=== PATIENT | female | born 1955 | race Two or more races ===

== ENCOUNTER 2016-07-29 14:23 | Emergency (ER) | payer MEDICAID, OTHER ==
[~2016-07-29] VITALS: Ht 154.9 cm; Wt 81.6 kg
[~2016-07-29 14:23] MED LIST: ALBUTEROL SULF8.5 GM INH; ASPIRIN81 M1 ORAL; BACTRIM-DS1 EA ORAL; DITROPAN10 MG PO; LANTUS100 UNIT/1 SUBQ; METFORMIN HCL1000 MG ORAL; PRILOSEC20 MG ORAL; TYLENOL EXTRA500 MG PO; UNK BP MED; UNK CHOLESTEROL; UNK INSULIN SUBQ
[2016-07-29 14:39] VITALS: BP 136/72
--- NOTE | 2016-07-29 16:11 | Diagnostic Imaging Report ---
Indication: PAIN Technique: 3 views right hand Comparison: none Findings: No acute fractures. No dislocations. The joint spaces are preserved Impression: Negative
[2016-07-29] MEDS ORDERED: IBUPROFEN600 MG ORAL (16:20)
[2016-07-29 16:24] VITALS: BP 136/72
--- NOTE | 2016-07-30 14:25 | Diagnostic Imaging Report ---
Indications: PAIN Technique: Two views of the right forearm Comparison: None Findings: There is a nondisplaced fracture of the radial head, best appreciated on the lateral view. There is also a joint effusion. No shaft fracture demonstrated Impression: Positive for radial head fracture Findings discussed by phone with Dr. Verduzco at the time of interpretation
--- NOTE | 2016-07-31 09:15 | Emergency Room Report ---
History of Present Illness General Chief Complaint: Multiple Trauma/Fall Source: Patient Present Illness HPI Patient presents after a fall Patient reports that her foot essentially tripped and the patient fell forward Has pain to the right hand and the right elbow area Mild bruising to the left hand Denies any neck pain denies any head injury or loss of consciousness into the right arm is 5/10 Denies any fevers or chills denies any loss of consciousness Allergies: Coded Allergies: No Known Allergies (Unverified , 02/08/12) Patient History Past Medical History: see triage record Pertinent Family History: none Reviewed Nursing Documentation: PMH: Agreed, PSxH: Agreed Nursing Documentation-PMH Past Medical History: No History, Except For Hx Cardiac Problems: Yes - HIGH CHOLESTEROL Hx Hypertension: Yes Hx Pacemaker: No Hx Asthma: No Hx COPD: No Hx Diabetes: Yes Hx Cancer: No Hx Gastrointestinal Problems: No Hx Dialysis: No Hx Neurological Problems: No Hx Cerebrovascular Accident: Yes Hx Seizures: No Hx Neurologic Surgery: Yes - cranioplasty Review of Systems All Other Systems: negative except mentioned in HPI Physical Exam Vital Signs Date Time Temp Pulse Resp B/P Pulse Ox O2 Delivery O2 Flow Rate FiO2 07/29/16 14:39 97.7 81 16 136/72 97 Room Air Sp02 EP Interpretation: reviewed, normal General Appearance: well appearing, no apparent distress Head: normocephalic, atraumatic Eyes: bilateral eye EOMI, bilateral eye PERRL ENT: hearing grossly normal, normal pharynx Neck: supple, thyroid normal Respiratory: chest non-tender, lungs clear Cardiovascular #1: regular rate, rhythm, no edema Gastrointestinal: non tender, soft Musculoskeletal: other - Tender on the right hand on the fifth digit metacarpal area, also proximal elbow, Neurologic: alert, oriented x3, responsive Skin: other - Hematoma noted to the right hand, abrasion to the left hand Lymphatic: no adenopathy Procedures Splinting Splinting : Consent: Verbal Hand-Made Type: plaster Splint: poserior short Pre-Proc Neuro Vasc Exam: normal Post-Proc Neuro Vasc Exam: normal Patient Tolerated: Well Complications: None Progress Right arm posterior short arm splint as above Medical Decision Making Diagnostic Impression: Primary Impression: radial head fracture ER Course Patient's x-rays reveal fracture as noted above patient was splinted Please note that initially the patient did not want any medications And was written a prescription for home Other X-Ray Diagnostic Results Other X-Ray Diagnostic Results #1: EP Interpretation: Yes Findings: no fractures, no dislocation, no soft tissue swelling Number of Views: 3 - Right hand Other X-Ray Diagnostic Results #2: EP Interpretation: Yes Findings: no dislocation, no soft tissue swelling, other - Right radial head fracture Number of Views: 2 - forearm right Last Vital Signs Date Time Temp Pulse Resp B/P Pulse Ox O2 Delivery O2 Flow Rate FiO2 07/29/16 16:24 97.7 16 136/72 97 Room Air 07/29/16 14:39 81 Status: improved Disposition: HOME, SELF-CARE Condition: Improved Scripts Ibuprofen* (MOTRIN*) 600 Mg Tablet 600 MG ORAL Q8H Y for For Pain, #30 TAB 0 Refills Prov: JOSH GUZMAN D.O. 07/29/16 Referrals: [facility],REFERRING (PCP) Patient Instructions: Radial Head Fracture Additional Instructions: Patient is provided with the discharge instructions notified to follow up with primary doctor in the next 2-3 days otherwise return to the er with any worsening symptoms. Please note that this report is being documented using [employer] technology. This can lead to erroneous entry secondary to incorrect interpretation by the dictating instrument. JOSH GUZMAN D.O. Jul 31, 2016 09:15
== END 2016-07-29 17:00 | disposition home or self-care (01) ==
LOC: EMR 16:50
DX: S52.124A Nondisplaced fracture of head of right radius, initial encounter for closed fracture (principal); E78.00 Pure hypercholesterolemia, unspecified; I10 Essential (primary) hypertension; E11.9 Type 2 diabetes mellitus without complications; Z86.73 Personal history of transient ischemic attack (TIA), and cerebral infarction without residual deficits; W01.0XXA Fall on same level from slipping, tripping and stumbling without subsequent striking against object, initial encounter; Y92.9 Unspecified place or not applicable; Y99.8 Other external cause status
CPT/HCPCS: 29125; 99283

== ENCOUNTER 2017-01-23 10:11 | Emergency (ER) | payer MEDICAID, OTHER ==
[~2017-01-23] VITALS: Ht 154.9 cm; Wt 88.5 kg
[~2017-01-23 10:11] MED LIST changes: +IBUPROFEN600 MG ORAL
[2017-01-23 10:43] VITALS: BP 192/82
--- NOTE | 2017-01-23 10:59 | Emergency Room Report ---
History of Present Illness General Chief Complaint: Pain Source: Patient Present Illness HPI Patient presents with complaints of pain to the left hip area and the right knee she reports that she was walking on a sidewalk when her leg gave out on her left side Pain is 6/10 in the left hip pain is worse with movement denies any lightheadedness denies any dizziness denies any chest pain or shortness of breath Pain the right knee is 5/10 worse with touch or movement appears to be mildly swollen denies any upper back or neck pain denies any lapse of consciousness Allergies: Coded Allergies: No Known Allergies (Unverified , 02/08/12) Patient History Past Medical History: see triage record Pertinent Family History: none Reviewed Nursing Documentation: PMH: Agreed, PSxH: Agreed Nursing Documentation-PMH Hx Cardiac Problems: Yes - HIGH CHOLESTEROL Hx Hypertension: Yes Hx Pacemaker: No Hx Asthma: No Hx COPD: No Hx Diabetes: Yes Hx Cancer: No Hx Gastrointestinal Problems: No Hx Dialysis: No Hx Neurological Problems: No Hx Cerebrovascular Accident: Yes Hx Seizures: No Hx Neurologic Surgery: Yes - cranioplasty Review of Systems All Other Systems: negative except mentioned in HPI Physical Exam Vital Signs Date Time Temp Pulse Resp B/P (MAP) Pulse Ox O2 Delivery O2 Flow Rate FiO2 01/23/17 10:20 97.7 83 18 232/160 95 Room Air Sp02 EP Interpretation: reviewed, normal General Appearance: well appearing, no apparent distress Head: normocephalic, atraumatic Eyes: bilateral eye PERRL, bilateral eye EOMI ENT: hearing grossly normal, normal pharynx, TMs + canals normal, uvula midline Neck: full range of motion, supple, no meningismus, no bony tend Respiratory: lungs clear, normal breath sounds, no rhonchi, no respiratory distress, no retraction, no accessory muscle use Cardiovascular #1: normal peripheral pulses, regular rate, rhythm, no edema, no gallop, no JVD, no murmur Gastrointestinal: normal bowel sounds, non tender, soft, no mass, no organomegaly, non-distended, no guarding, no hernia, no pulsatile mass, no rebound Genitourinary: no CVA tenderness Musculoskeletal: other - Tender on palpation of the left iliac wing, mild swelling to the right knee and tender on palpation of the patella, neurovascularly intact Neurologic: oriented x3, responsive, 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, sensory intact Psychiatric: mood/affect normal Skin: other - Small effusion right knee as noted above Lymphatic: normal inspection, no adenopathy Medical Decision Making Diagnostic Impression: Primary Impression: Knee contusion Additional Impression: Contusion, hip ER Course Given the patient's presentation and history imaging studies were initiated No signs of any acute fractures Patient has done well throughout her stay Patient had a fall earlier this year I did discuss with the patient and her son to follow up closely with her primary physician These appear to be mainly mechanical in nature However close followup would be recommended Other X-Ray Diagnostic Results Other X-Ray Diagnostic Results : X-Ray ordered: right knee # of Views/Limited Vs Complete: 3 View Indication: Pain EP Interpretation: Yes Interpretation: no dislocation, no fractures, other - Mild soft tissue swelling, minimal effusion Impression: Other - small effusio Electronically Signed by: Forrest Guzman, CT/MRI/US Diagnostic Results CT/MRI/US Diagnostic Results : Impression CT pelvic: no acute disease Last Vital Signs Date Time Temp Pulse Resp B/P (MAP) Pulse Ox O2 Delivery O2 Flow Rate FiO2 01/23/17 10:43 81 16 192/82 98 Room Air 01/23/17 10:20 97.7 Status: improved Disposition: HOME, SELF-CARE Condition: Improved Scripts Ibuprofen* (MOTRIN*) 600 Mg Tablet 600 MG ORAL Q8H Y for For Pain, #20 TAB 0 Refills Prov: FORREST GUZMAN D.O. 01/23/17 Additional Instructions: Patient is provided with the discharge instructions notified to follow up with primary doctor in the next 2-3 days otherwise return to the er with any worsening symptoms. Please note that this report is being documented using [employer] technology. This can lead to erroneous entry secondary to incorrect interpretation by the dictating instrument. FORREST GUZMAN D.O. Jan 23, 2017 10:59
[2017-01-23] MEDS ORDERED: Norco 5mg/325mg tab ORAL ONE (11:00)
[2017-01-23] MEDS ORDERED: Ketorolac 60mg Inj IM ONE (11:00)
[2017-01-23] MEDS ORDERED: [UNRECOGNIZED DRUG - REMARK] SUBQ (11:03)
[2017-01-23] MEDS ORDERED: LANTUS SOL100 UNIT/1 SUBQ (11:03)
[2017-01-23] MEDS ORDERED: [UNRECOGNIZED DRUG - REMARK] SQ (11:03)
[2017-01-23] MEDS ORDERED: BENAZEPRIL HCL10 MG ORAL (11:03)
--- NOTE | 2017-01-23 11:36 | Diagnostic Imaging Report ---
Indication: Trauma with pain Technique: XRAY KNEE THREE VIEWS LEFT Comparison: None. Findings: There is narrowing of the knee joint. Tricompartment spurring is present. Fullness of the suprapatellar pouch is present. No definite fracture. No bone destruction. There is an enthesophyte at the quadriceps tendon attachment. Impression: Osteoarthrosis. Knee effusion. Enthesophyte at the quadriceps tendon attachment on the patella.
--- NOTE | 2017-01-23 12:05 | Diagnostic Imaging Report ---
Indication: Trauma with pain Technique: CT PELVIS WO CONTRAST Dose: Total Dose Length Product - DLP [address] Dose Index - CTDIvol(s) 13.66 mGy. Comparison: None Findings: Degenerative changes noted in the lower lumbar spine. The pelvis is intact. There is no fracture. There is no evidence of bone destruction. The hips are intact. There are no gross joint effusions. The uterus is normal size. Calcified phleboliths are present. The ovaries are not enlarged area in the bladder is unremarkable. Impression: Degenerative change in the lumbar spine. Otherwise negative. No osseous injury. The CT scanner at [facility] is accredited by the [employer] and the scans are performed using protocols designed to limit radiation exposure to as low as reasonably achievable to attain images of sufficient resolution adequate for diagnostic evaluation.
[2017-01-23 12:08] LABS: CALCIUM 9.2 mg/dL (8.6-10.2); CREATININE 1.2 mg/dL (0.5-0.9); GLOMERULAR FILTRATION RATE 45.9 mL/min (>60)
[2017-01-23 12:16] LABS: BASOPHILS % (AUTO) 0.8 % (0.0-2.0); EOSINOPHILS % (AUTO) 2.2 % (0.0-3.0); LYMPHOCYTES % (AUTO) 21.8 % (20.0-45.0); MEAN CORPUSCULAR HEMOGLOBIN 24.4 PG (27.0-31.0); MEAN CORPUSCULAR HGB CONC 30.6 G/DL (32.0-36.0); MEAN CORPUSCULAR VOLUME 80 FL (80-99); MEAN PLATELET VOLUME 12.6 FL (6.5-10.1); MONOCYTES % (AUTO) 5.2 % (1.0-10.0); PLATELET COUNT 217 K/UL (150-450); RED BLOOD COUNT 5.05 M/UL (4.20-5.40); RED CELL DISTRIBUTION WIDTH 12.6 % (11.6-14.8); WHITE BLOOD COUNT 6.9 K/UL (4.8-10.8)
[2017-01-23] MEDS ORDERED: IBUPROFEN600 MG ORAL (12:50)
[2017-01-23 13:30] VITALS: BP 179/82
[2017-01-23 13:33] VITALS: BP 179/82
== END 2017-01-23 13:33 | disposition home or self-care (01) ==
LOC: EMR 10:30
DX: S80.01XA Contusion of right knee, initial encounter (principal); S70.02XA Contusion of left hip, initial encounter; W19.XXXA Unspecified fall, initial encounter; Y93.9 Activity, unspecified; Y92.480 Sidewalk as the place of occurrence of the external cause; I10 Essential (primary) hypertension; E11.9 Type 2 diabetes mellitus without complications; Z86.73 Personal history of transient ischemic attack (TIA), and cerebral infarction without residual deficits; Z91.81 History of falling; M17.12 Unilateral primary osteoarthritis, left knee
CPT/HCPCS: 36415; 72192; 80048; 82962; 85025; 96372; 99284

== ENCOUNTER 2017-11-20 21:25 | Emergency (ER) | payer MEDICAID, OTHER ==
[~2017-11-20] VITALS: Ht 152.4 cm; Wt 88.5 kg
[~2017-11-20 21:25] MED LIST changes: +BENAZEPRIL HCL10 MG ORAL; +LANTUS SOL100 UNIT/1 SUBQ; +[UNRECOGNIZED DRUG - REMARK] SQ; +[UNRECOGNIZED DRUG - REMARK] SUBQ
--- NOTE | 2017-11-20 21:57 | Emergency Room Report ---
History of Present Illness General Chief Complaint: Dizziness Source: Patient, Medical Record Present Illness HPI Is a 62-year-old female with history of diabetes. She is on insulin for it. She presents with chief complaint is weakness, dizziness and headache. Onset for several days. Marty lightheaded. No vertigo. Pain is to the back her head waning to the front. No nausea no vomiting. No abdominal pain. Said that her blood sugar runs in the 500 at night. Better in the morning. Takes insulin for it. No chest pain. No nausea vomiting or diarrhea. Allergies: Coded Allergies: No Known Allergies (Unverified , 02/08/12) Patient History Past Medical History: see triage record, old chart reviewed, DM Past Surgical History: other Pertinent Family History: none Social History: Denies: smoking Last Menstrual Period: none Now: No Immunizations: other Reviewed Nursing Documentation: PMH: Agreed; PSxH: Agreed Nursing Documentation-PMH Hx Cardiac Problems: Yes - HIGH CHOLESTEROL Hx Hypertension: Yes Hx Pacemaker: No Hx Asthma: No Hx COPD: No Hx Diabetes: Yes Hx Cancer: No Hx Gastrointestinal Problems: No Hx Dialysis: No Hx Neurological Problems: No Hx Cerebrovascular Accident: Yes Hx Seizures: No Hx Neurologic Surgery: Yes - cranioplasty Review of Systems Constitutional: Reports: malaise, weakness Eye: Denies: eye pain, blurred vision ENT: Denies: ear pain, nose congestion, throat swelling Respiratory: Denies: cough, shortness of breath Cardiovascular: Denies: chest pain, palpitations Gastrointestinal: Denies: abdominal pain, diarrhea, nausea, vomiting Musculoskeletal: Denies: back pain, joint pain Skin: Denies: rash Neurological: Reports: headache, dizziness; Denies: numbness Endocrine: Denies: increased thirst, increased urine Hematologic/Lymphatic: Denies: easy bruising All Other Systems: negative except mentioned in HPI Physical Exam Vital Signs Date Time Temp Pulse Resp B/P (MAP) Pulse Ox O2 Delivery O2 Flow Rate FiO2 11/20/17 21:37 98.4 43 18 176/59 96 Room Air 98.4 vitals with high blood pressure Sp02 EP Interpretation: reviewed, normal General Appearance: well appearing, no apparent distress, alert Head: normocephalic, atraumatic Eyes: bilateral eye PERRL, bilateral eye EOMI ENT: hearing grossly normal, normal pharynx Neck: full range of motion, supple, no meningismus Respiratory: chest non-tender, lungs clear, normal breath sounds Cardiovascular #1: regular rate, rhythm, no murmur Gastrointestinal: normal bowel sounds, non tender, no mass, no organomegaly, no bruit, non-distended Musculoskeletal: back normal, gait/station normal, normal range of motion Psychiatric: mood/affect normal Skin: warm/dry Medical Decision Making Diagnostic Impression: Primary Impression: Dizziness of unknown cause Additional Impressions: Bradycardia Hyperglycemia due to type 2 diabetes mellitus Qualified Codes: E11.65 - Type 2 diabetes mellitus with hyperglycemia; Z79.4 - intermediate project manager (current) use of insulin BROOKE (acute kidney injury) Proteinuria Qualified Codes: R80.9 - Proteinuria, unspecified ER Course Patient resents with dizziness. No syncope. Also with headache. Here she's has been very bradycardic. Asymptomatic when she is laying down. Heart rate is been in the mid 30s to low 40s. This may be secondary to beta blockade. She 's taking 2 blood pressure medications. One is benazepril. The other one she doesn't know the name. Blood sugar is also very elevated. No evidence of infection. She has evidence of BROOKE. IV fluid given. Insulin given. Glucose improving. Will admit for monitoring and further workup. Discussed the case with Dr. Richardson who will admit. Lab Results Impression labs with elevated glucose EKG Diagnostic Results Rate: bradycardiac Rhythm: NSR ST Segments: no acute changes Rhythm Strip Diag. Results Rhythm Strip Time: 00:40 EP Interpretation: yes Rate: 42 Rhythm: NSR, no PVC's, no ectopy CT/MRI/US Diagnostic Results CT/MRI/US Diagnostic Results : Imaging Test Ordered: CT head Impression read by radiologist. Neg Last Vital Signs Date Time Temp Pulse Resp B/P (MAP) Pulse Ox O2 Delivery O2 Flow Rate FiO2 11/20/17 21:37 98.4 43 18 176/59 96 Room Air 98.4 Status: improved Disposition: ADMITTED INPATIENT Condition: Serious LEIGH CORREA M.D. Nov 20, 2017 21:57
[2017-11-20] MEDS ORDERED: Ketorolac 30mg Inj IV ONE (22:00)
[2017-11-20 22:59] LABS: APPEARANCE,URINE CLEAR; BILIRUBIN, URINE NEGATIVE (NEGATIVE); COLOR,URINE PALE YELLOW; GLUCOSE, URINE (UA) 4+ (NEGATIVE); KETONES,URINE NEGATIVE (NEGATIVE); LEUKOCYTE ESTERASE ,URINE NEGATIVE (NEGATIVE); NITRITE,URINE NEGATIVE (NEGATIVE); PH,URINE 5 (4.5-8.0); PROTEIN,URINE 3+ (NEGATIVE); UROBILINOGEN,URINE NORMAL MG/DL (0.0-1.0)
[2017-11-20 23:01] LABS: BASOPHILS % (AUTO) 0.9 % (0.0-2.0); EOSINOPHILS % (AUTO) 1.1 % (0.0-3.0); HEMATOCRIT 33.6 % (37.0-47.0); HEMOGLOBIN 10.8 G/DL (12.0-16.0); LYMPHOCYTES % (AUTO) 23.6 % (20.0-45.0); MEAN CORPUSCULAR VOLUME 79 FL (80-99); MONOCYTES % (AUTO) 6.3 % (1.0-10.0); NEUTROPHILS % (AUTO) 68.1 % (45.0-75.0); PLATELET COUNT 160 K/UL (150-450); RED BLOOD COUNT 4.25 M/UL (4.20-5.40); WHITE BLOOD COUNT 6.8 K/UL (4.8-10.8)
[2017-11-20 23:21] LABS: ANION GAP 5 mmol/L (5-15); BLOOD UREA NITROGEN 56 mg/dL (7-18); CALCIUM 8.7 MG/DL (8.5-10.1); CARBON DIOXIDE 28 MMOL/L (21-32); CHLORIDE 101 MMOL/L (98-107); CREATININE 2.3 MG/DL (0.55-1.30); POTASSIUM 5.3 MMOL/L (3.5-5.1); SODIUM 134 MMOL/L (136-145)
[2017-11-20] MEDS ORDERED: Insulin Human Regular 100units/ml 3ml IV ONE (23:30)
[2017-11-20 23:56] VITALS: BP 158/37
[2017-11-21 02:08] VITALS: BP 165/50
--- NOTE | 2017-11-21 10:31 | Diagnostic Imaging Report ---
Indication: Dizziness Technique: Contiguous 5 mm thick transaxial imaging of the head obtained in a Siemens Sensation [address] scanner. Soft tissue and bone windows generated. Automatic Exposure Control was utilized. Total Dose length Product (DLP): 1319.[address] Dose Index Volume (CTDIvol): 70.38 mGy Comparison: 08/18/2012 Findings: Right frontal encephalomalacia demonstrated. There is a craniectomy over the left calvarium again noted. There is mild prominence of the ventricles, basal cisterns, and cerebral sulci consistent with atrophy. Mild, nonspecific, white matter hypoattenuation is noted throughout the brain consistent with chronic small vessel disease. There is no midline shift, edema, acute hemorrhage, mass effect, or abnormal extra-axial fluid collections. Bones and extra osseous soft tissues are unremarkable. Impression: No acute intracranial bleed, mass effect or edema. No significant change. Previous left-sided craniectomy Mild right inferior frontal encephalomalacia unchanged Mild atrophy of the brain. Nonspecific white matter hypoattenuation probably due to chronic small vessel disease. The CT scanner at [facility] is accredited by the [employer] and the scans are performed using dose optimization techniques as appropriate to a performed exam including Automatic Exposure control.
== END 2017-11-21 02:06 | disposition left against medical advice (07) ==
LOC: EMR 23:29 → 2W 11-21 00:34 → UNDOADMIN 11-21 00:34 → EDBEDREQ 11-21 01:17 → EMR 11-21 02:06 → UNDODISIN 11-21 04:01
DX: E11.65 Type 2 diabetes mellitus with hyperglycemia (principal); N17.9 Acute kidney failure, unspecified; R42 Dizziness and giddiness; R80.9 Proteinuria, unspecified; R00.1 Bradycardia, unspecified; Z86.73 Personal history of transient ischemic attack (TIA), and cerebral infarction without residual deficits; I10 Essential (primary) hypertension; E78.00 Pure hypercholesterolemia, unspecified
CPT/HCPCS: 36415; 70450; 80048; 81001; 82962; 84484; 85025; 93005; 99284; J1815; J1885

== ENCOUNTER 2018-06-17 22:26 | Emergency (ER) | payer MEDICAID, OTHER ==
[~2018-06-17] VITALS: Ht 154.9 cm; Wt 79.4 kg
[2018-06-17 22:55] VITALS: BP 218/74
--- NOTE | 2018-06-17 22:55 | NUR ---
ED Nurse Note: Patient walk in with son c/o lower abdominal pain radiating to lower back. Patient was hospitalized last week for kidney infection at [facility] in [facility]. Symptoms went away and then returned yesterday. BP is 217/92. pt is complaining of 7/10 pain. denies vomiting. md made aware of the b. will continue to monitor.
--- NOTE | 2018-06-18 00:01 | NUR ---
ED Nurse Note: Received verbal orders from ERMD for CBC CMP and Urinalysis. Notified primary RN
[2018-06-18 00:09] LABS: APPEARANCE,URINE CLEAR; BILIRUBIN, URINE NEGATIVE (NEGATIVE); COLOR,URINE PALE YELLOW; GLUCOSE, URINE (UA) 4+ (NEGATIVE); KETONES,URINE NEGATIVE (NEGATIVE); LEUKOCYTE ESTERASE ,URINE NEGATIVE (NEGATIVE); NITRITE,URINE NEGATIVE (NEGATIVE); PH,URINE 6 (4.5-8.0); PROTEIN,URINE 3+ (NEGATIVE); UROBILINOGEN,URINE NORMAL MG/DL (0.0-1.0)
[2018-06-18 00:10] LABS: BASOPHILS % (AUTO) 0.7 % (0.0-2.0); EOSINOPHILS % (AUTO) 1.5 % (0.0-3.0); HEMATOCRIT 34.7 % (37.0-47.0); HEMOGLOBIN 11.2 G/DL (12.0-16.0); LYMPHOCYTES % (AUTO) 23.3 % (20.0-45.0); MEAN CORPUSCULAR VOLUME 76 FL (80-99); MONOCYTES % (AUTO) 6.6 % (1.0-10.0); NEUTROPHILS % (AUTO) 67.9 % (45.0-75.0); PLATELET COUNT 257 K/UL (150-450); RED BLOOD COUNT 4.55 M/UL (4.20-5.40); RED CELL DISTRIBUTION WIDTH 13.2 % (11.6-14.8); WHITE BLOOD COUNT 6.6 K/UL (4.8-10.8)
--- NOTE | 2018-06-18 00:12 | Emergency Room Report ---
History of Present Illness General Chief Complaint: Abdominal Pain Source: Patient Present Illness HPI Is a 63-year-old female with a history of hypertension. She presents with chief complaint of dysuria frequency. She was admitted about a couple weeks ago for pyelonephritis. She finished a course of antibiotics. Now she has dysuria frequency. Onset today. No nausea no vomiting. No fever chills but no back pain. She did not take her blood pressure presents in tonight. Allergies: Coded Allergies: No Known Allergies (Unverified , 02/08/12) Patient History Past Medical History: see triage record, old chart reviewed, HTN Past Surgical History: other Pertinent Family History: none Social History: Denies: smoking Last Menstrual Period: KAVYA Now: No Immunizations: other Reviewed Nursing Documentation: PMH: Agreed; PSxH: Agreed Nursing Documentation-PMH Past Medical History: No History, Except For Hx Cardiac Problems: Yes Hx Hypertension: Yes Hx Pacemaker: Yes Hx Asthma: No Hx COPD: No Hx Diabetes: Yes Hx Cancer: No Hx Gastrointestinal Problems: No Hx Dialysis: No Hx Neurological Problems: No Hx Cerebrovascular Accident: Yes - 1975 - no deficits Hx Seizures: No Hx Neurologic Surgery: Yes - cranioplasty Review of Systems Eye: Denies: eye pain, blurred vision ENT: Denies: ear pain, nose congestion, throat swelling Respiratory: Denies: cough, shortness of breath Cardiovascular: Denies: chest pain, palpitations Gastrointestinal: Denies: abdominal pain, diarrhea, nausea, vomiting Genitourinary: Reports: dysuria, frequency Musculoskeletal: Denies: back pain, joint pain Skin: Denies: rash Neurological: Denies: headache, numbness Endocrine: Denies: increased thirst, increased urine Hematologic/Lymphatic: Denies: easy bruising All Other Systems: negative except mentioned in HPI Physical Exam Vital Signs Date Time Temp Pulse Resp B/P (MAP) Pulse Ox O2 Delivery O2 Flow Rate FiO2 06/17/18 22:49 97.5 81 16 217/92 98 Room Air vitals with high blood pressure Sp02 EP Interpretation: reviewed, normal General Appearance: well appearing, no apparent distress, alert, obese Head: normocephalic, atraumatic Eyes: bilateral eye PERRL, bilateral eye EOMI ENT: hearing grossly normal, normal pharynx Neck: full range of motion, supple, no meningismus Respiratory: chest non-tender, lungs clear, normal breath sounds Cardiovascular #1: regular rate, rhythm, no murmur Gastrointestinal: normal bowel sounds, non tender, no mass, no organomegaly, no bruit, non-distended Musculoskeletal: back normal, gait/station normal, normal range of motion Psychiatric: mood/affect normal Skin: warm/dry Medical Decision Making Diagnostic Impression: Primary Impression: Hypertension Qualified Codes: I10 - Essential (primary) hypertension Additional Impression: Hyperglycemia due to type 1 diabetes mellitus ER Course Patient with poorly controlled diabetes and high blood pressure. She probably not watching what she eat. She did have a large no prior to arrival. According to his son, she had beans and tortillas. No evidence of endorgan damage. No evidence of urinary tract infection. We'll discharge home. We'll add another blood pressure medication. Currently she is taking benazepril and Hydrochlorothiazide. Last Vital Signs Date Time Temp Pulse Resp B/P (MAP) Pulse Ox O2 Delivery O2 Flow Rate FiO2 06/17/18 22:55 97.5 81 16 218/74 98 Room Air Status: improved Disposition: HOME, SELF-CARE Condition: Stable Scripts Amlodipine Besylate (Norvasc) 10 Mg Tablet 10 MG ORAL DAILY, #30 TAB Prov: Carlos Lunsford MD 06/18/18 Additional Instructions: Watch your diet. Follow-up with your doctor in 7 days. Return if symptom worsen. Carlos Lunsford MD Jun 18, 2018 00:12
[2018-06-18 00:15] LABS: ANION GAP 9 mmol/L (5-15); BLOOD UREA NITROGEN 44 mg/dL (7-18); CARBON DIOXIDE 26 MMOL/L (21-32); CHLORIDE 100 MMOL/L (98-107); CREATININE 1.5 MG/DL (0.55-1.30); POTASSIUM 4.6 MMOL/L (3.5-5.1); SODIUM 135 MMOL/L (136-145)
[2018-06-18] MEDS ORDERED: Benazepril 10mg tab ONE (00:17)
[2018-06-18 00:19] LABS: ALANINE AMINOTRANSFERASE 23 U/L (12-78); ALBUMIN 2.8 G/DL (3.4-5.0); ALBUMIN/GLOBULIN RATIO 0.6 (1.0-2.7); ALKALINE PHOSPHATASE 165 U/L (46-116); ASPARTATE AMINO TRANSFERASE 18 U/L (15-37); BILIRUBIN,TOTAL 0.2 MG/DL (0.2-1.0)
[2018-06-18] MEDS ORDERED: Benazepril 10mg tab ORAL ONE ×2 (00:30→01:00)
[2018-06-18] MEDS ORDERED: NORVASC10 MG ORAL (01:03)
[2018-06-18] MEDS ORDERED: Insulin Human Regular 100units/ml 3ml IV ONE (01:15)
[2018-06-18 01:16] VITALS: BP 150/65
[2018-06-18 01:17] VITALS: BP 150/65
--- NOTE | 2018-06-18 01:17 | NUR ---
ED Nurse Note: Patient cleared for discharge per ERMD. NAD. VSS. Patient given prescriptions and discharge instructions; verbalized understanding. iv and ID band removed. Patient ambulated steady with all personal belongings accomapnied by son.
== END 2018-06-18 01:17 | disposition home or self-care (01) ==
LOC: EMR 23:10
DX: I10 Essential (primary) hypertension (principal); E10.65 Type 1 diabetes mellitus with hyperglycemia; Z86.73 Personal history of transient ischemic attack (TIA), and cerebral infarction without residual deficits
CPT/HCPCS: 36415; 80053; 81001; 82962; 85025; 96361; 96374; 96375; 99284; J0360; J1815

== ENCOUNTER 2018-09-15 20:01 | Emergency (ER) | payer MEDICAID, OTHER ==
[~2018-09-15] VITALS: Ht 157.5 cm; Wt 81.6 kg
[~2018-09-15 20:01] MED LIST changes: +NORVASC10 MG ORAL
[2018-09-15] MEDS ORDERED: UNOBMED (20:12)
[2018-09-15 20:16] VITALS: BP 132/60
--- NOTE | 2018-09-15 20:18 | NUR ---
ED Nurse Note: Patient walked in to ER from home c/o left side neck pain. Per patient she is coughing 1 week and today pain started in her left side of her neck. AAO x4, VSS at this time, skin is dry, intackt.
[2018-09-15] MEDS ORDERED: GUAIFENESIN DM118 M1 ORAL (21:09)
--- NOTE | 2018-09-15 21:23 | Diagnostic Imaging Report ---
History: SOB Exam: XR CXR 1 VIEW Comparison: 08/18/2012 FINDINGS: The lungs appear clear. Pulmonary vascularity appears within limits. A dual-chamber pacemaker is now present. The cardiac silhouette appears enlarged. Visualized osseous structures appear within limits. IMPRESSION: No evidence of acute disease. A dual-chamber pacemaker is now present. The cardiac silhouette appears enlarged.
[2018-09-15 21:27] VITALS: BP 132/60
--- NOTE | 2018-09-15 21:28 | NUR ---
ED Nurse Note: Pt cleared by health care Provider for discharge. DC instructions/prescription was given and explained to pt and verbalized understanding of teachings. All medical deviecs such as ID band removed. Pt is AAO x4, ambulatory and left with all personal belongings.
--- NOTE | 2018-09-19 15:41 | Emergency Room Report ---
History of Present Illness General Chief Complaint: Sore Throat Source: Patient Present Illness HPI Patient is a 63-year-old female presented after increased sore throat. Patient had gradual onset of symptoms over the past few days.Patient not been vomiting or having any diarrhea. She reported having increased nonproductive cough. She had increased nasal congestion. Allergies: Coded Allergies: No Known Allergies (Unverified , 02/08/12) Patient History Past Medical History: see triage record Last Menstrual Period: KAVYA Now: No Reviewed Nursing Documentation: PMH: Agreed; PSxH: Agreed Nursing Documentation-PMH Hx Cardiac Problems: Yes Hx Hypertension: Yes Hx Pacemaker: Yes Hx Asthma: No Hx COPD: No Hx Diabetes: Yes Hx Cancer: No Hx Gastrointestinal Problems: No Hx Dialysis: No Hx Neurological Problems: No Hx Cerebrovascular Accident: Yes - 1975 - no deficits Hx Seizures: No Hx Neurologic Surgery: Yes - cranioplasty Review of Systems All Other Systems: negative except mentioned in HPI Physical Exam Vital Signs Date Time Temp Pulse Resp B/P (MAP) Pulse Ox O2 Delivery O2 Flow Rate FiO2 09/15/18 20:09 98.2 80 16 95 Room Air 09/15/18 20:16 132/60 General Appearance: well appearing, no apparent distress, alert, GCS 15 Head: normocephalic, atraumatic ENT: hearing grossly normal, normal voice Neck: full range of motion, supple Respiratory: no respiratory distress, speaking full sentences Cardiovascular #1: normal inspection, regular rate, rhythm Gastrointestinal: normal inspection, non tender, soft Musculoskeletal: no calf tenderness Neurologic: normal inspection, alert, oriented x3, responsive, fiberglass autobody repairer III-XII nml as tested, normal gait Psychiatric: mood/affect normal Skin: no rash Medical Decision Making Diagnostic Impression: Primary Impression: Upper respiratory infection ER Course Patient presented for cough. Differential diagnosis include was not limited to bronchitis, pneumonia, congestive heart failure, upper respiratory infection among others. X-ray imaging of the chest was ordered to patient's prior cardiac history. Patient was noted to have pacemaker with slight cardiomegaly on chest x-ray. There is no evident infiltrate noted. Patient appears to have a upper respiratory infection. She was given prescriptions for medications for symptomatic treatment. Patient does not show any evidence of pedal edema or neck vein distention. Patient was advised to continue taking her medications and to avoid salt in her diet.The patient is advised to follow up with primary care doctor in 1-2 days. Patient is advised to return if any worsening condition or if any changes in status that are concerning. Last Vital Signs Date Time Temp Pulse Resp B/P (MAP) Pulse Ox O2 Delivery O2 Flow Rate FiO2 09/15/18 21:27 98.2 16 132/60 95 Room Air 09/15/18 20:09 80 Status: improved Disposition: HOME, SELF-CARE Condition: Improved Scripts Guaifenesin/Dextromethorphan (Guaifenesin Dm Syrup) 5 Ml Syrup 1 TSP ORAL Q8H, #118 ML 0 Refills Prov: Mic Bashir MD 09/15/18 Patient Instructions: Sore Throat Mic Bashir MD September 19, 2018 15:41
== END 2018-09-15 21:35 | disposition home or self-care (01) ==
LOC: EMR 20:44
DX: J06.9 Acute upper respiratory infection, unspecified (principal); I10 Essential (primary) hypertension; Z95.0 Presence of cardiac pacemaker; E11.9 Type 2 diabetes mellitus without complications; Z86.73 Personal history of transient ischemic attack (TIA), and cerebral infarction without residual deficits
CPT/HCPCS: 71045; 99283

== ENCOUNTER 2019-02-07 17:04 | Emergency (ER) | payer MEDICAID ==
[~2019-02-07] VITALS: Ht 154.9 cm; Wt 79.4 kg
[~2019-02-07 17:04] MED LIST changes: +GUAIFENESIN DM118 M1 ORAL; +UNOBMED
--- NOTE | 2019-02-07 17:24 | NUR ---
ED Nurse Note: PT WALKED IN TO ER TODAY FROM HOME. AOX4. PT C/O RIGHT BIG TOE PAIN X 2 HOURS AGO AFTER ACCIDENTALLY KICKING A STROLLER. PT STATES IT WAS BLEEDING AFTER INCIDENT BUT AT BEDSIDE, NO ACTIVE BLEEDING NOTED. FULL ROM OF DIGIT. CIRCULATION AND SENSATION INTACT.
--- NOTE | 2019-02-07 17:50 | Diagnostic Imaging Report ---
Indication: Pain, trauma Technique: 3 views of the right great toe Comparison: none Findings: No acute fractures. No dislocations. There is questionably a small focus of soft tissue gas dorsally. Impression: No acute bony trauma Questionable small dorsal atrophy gas collection. Correlate with any clinical history of penetrating trauma
[2019-02-07] MEDS ORDERED: Cephalexin 500mg cap ORAL ONE (18:00)
[2019-02-07] MEDS ORDERED: Tetanus/Diptheria/Pertussis IM ONE (18:00)
--- NOTE | 2019-02-07 18:03 | Emergency Room Report ---
History of Present Illness General Chief Complaint: Lower Extremity Injury Source: Patient Present Illness HPI 63-year-old female with history of diabetes currently controlled with insulin and metformin here complaining of pain and swelling on right big toe that started today after hitting it against a stroller. Patient is rating the pain 10 out of 10. The nail still attached however bleeding. Patient is not up-to- date with his tetanus shot. Denies tingling and numbness. Denies fever and chills, chest pain, shortness of breath, palpitation. Has full range of motion of the lower extremity. Denies calf tenderness and swelling. Has not taken medication for symptom relief. Allergies: Coded Allergies: No Known Allergies (Unverified , 02/08/12) Patient History Past Medical History: see triage record Past Surgical History: unable to obtain Pertinent Family History: none Now: No Immunizations: other - Tdap Reviewed Nursing Documentation: PMH: Agreed; PSxH: Agreed Nursing Documentation-PMH Past Medical History: No History, Except For Hx Cardiac Problems: Yes Hx Hypertension: Yes Hx Pacemaker: Yes Hx Asthma: No Hx COPD: No Hx Diabetes: Yes Hx Cancer: No Hx Gastrointestinal Problems: No Hx Dialysis: No Hx Neurological Problems: No Hx Cerebrovascular Accident: Yes - 1975 - no deficits Hx Seizures: No Hx Neurologic Surgery: Yes - cranioplasty Review of Systems All Other Systems: negative except mentioned in HPI Physical Exam Vital Signs Date Time Temp Pulse Resp B/P (MAP) Pulse Ox O2 Delivery O2 Flow Rate FiO2 02/07/19 17:09 98.4 72 18 125/58 (80) 99 Room Air Sp02 EP Interpretation: reviewed, normal General Appearance: no apparent distress, alert, GCS 15, non-toxic Head: normocephalic, atraumatic Eyes: bilateral eye normal inspection, bilateral eye PERRL ENT: hearing grossly normal, normal pharynx, no angioedema, normal voice Neck: full range of motion, supple/symm/no masses Respiratory: chest non-tender, lungs clear, normal breath sounds, no rhonchi, no wheezing, speaking full sentences Cardiovascular #1: regular rate, rhythm, no edema, no murmur, normal capillary refill Cardiovascular #2: 2+ dorsalis pedis (R), 2+ dorsalis pedis (L) Gastrointestinal: normal bowel sounds, non tender, soft, non-distended, no guarding, no rebound Rectal: deferred Genitourinary: normal inspection, no CVA tenderness Musculoskeletal: back normal, gait/station normal, normal range of motion, non- tender, no calf tenderness, pelvis stable, inflammation, swelling - right big toe, other Neurologic: alert, oriented x3, responsive, motor strength/tone normal, sensory intact, speech normal Psychiatric: judgement/insight normal, memory normal, mood/affect normal, no suicidal/homicidal ideation Skin: other - cellulitis right big toe Lymphatic: normal inspection, no adenopathy Medical Decision Making PA Attestation All diagnoses and treatment plans were reviewed and discussed with my supervising physician Dr. Duran Diagnostic Impression: Primary Impression: Toe contusion Additional Impression: Toe infection ER Course 63-year-old female with history of diabetes currently controlled with insulin and metformin here complaining of pain and swelling on right big toe that started today after hitting it against a stroller. Patient is rating the pain 10 out of 10. The nail still attached however bleeding. Patient is not up-to- date with his tetanus shot. Denies tingling and numbness. Denies fever and chills, chest pain, shortness of breath, palpitation. Has full range of motion of the lower extremity. Denies calf tenderness and swelling. Has not taken medication for symptom relief. Ddx considered but are not limited to: Toe sprain, toe fracture, toe contusion Vital signs: are WNL, pt. is afebrile H&PE are most consistent with: Cellulitis of toe secondary to toe contusion ORDERS: Toe x-ray, ibuprofen, Keflex, Tdap ED INTERVENTIONS: Keflex, wound care and dress DISCHARGE: At this time pt. is stable for d/c to home. Will provide printed patient care instructions, and any necessary prescriptions. Care plan and follow up instructions have been discussed with the patient prior to discharge. Advised the patient follow-up with acute care clinical nurse specialist return to the emergency room if change of color of the toe turning black Other X-Ray Diagnostic Results Other X-Ray Diagnostic Results : X-Ray ordered: toe Xray # of Views/Limited Vs Complete: 3 View Indication: Pain EP Interpretation: Yes PA Xray: Interpretation reviewed, by supervising MD, and agrees with findings. Interpretation: no dislocation, no soft tissue swelling, no fractures Impression: No acute disease Electronically Signed by: Win Dye PA-C Last Vital Signs Date Time Temp Pulse Resp B/P (MAP) Pulse Ox O2 Delivery O2 Flow Rate FiO2 02/07/19 17:09 98.4 72 18 125/58 (80) 99 Room Air Disposition: HOME, SELF-CARE Condition: Stable Scripts Ibuprofen* (MOTRIN*) 600 Mg Tablet 600 MG ORAL FOUR TIMES A DAY, #30 TAB 0 Refills Prov: Win Herron 02/07/19 Cephalexin* (KEFLEX*) 500 Mg Capsule 500 MG ORAL EVERY 6 HOURS for 7 Days, #28 CAP Prov: Win Herron 02/07/19 Referrals: [facility] (PCP) Patient Instructions: Contusion, [id number] Additional Instructions: Take medication as to follow provider if any change of color numbness in the toes or gangrene he is color change such as turning black return to the emergency room right away. Also follow-up with her primary care provider and Ortho for further work-up. Win Herron Feb 07, 2019 18:03
[2019-02-07] MEDS ORDERED: CEPHALEXIN500 MG ORAL (18:05)
[2019-02-07] MEDS ORDERED: IBUPROFEN600 MG ORAL (18:05)
[2019-02-07 18:18] VITALS: BP 122/62
--- NOTE | 2019-02-07 18:18 | NUR ---
ED Nurse Note: PT LAYING PEACEFULLY IN BED IN NAD. AOX4. PRESCRIPTION AND DISCHARGE PAPERWORK EXPLAINED TO PT. PT VERBALIZES UNDERSTANDING AND ALL QUESTIONS ANSWERED. PRESCRIPTION AND DISCHARGE PAPERWORK GIVEN TO PT AND ID WRISTBAND REMOVED. PT WALKED OUT OF ER WITH STEADY GAIT AND ALL BELONGINGS.
== END 2019-02-07 18:19 | disposition home or self-care (01) ==
LOC: EMR 17:40
DX: S90.111A Contusion of right great toe without damage to nail, initial encounter (principal); L03.031 Cellulitis of right toe; I10 Essential (primary) hypertension; E11.9 Type 2 diabetes mellitus without complications; Z95.0 Presence of cardiac pacemaker; Z86.73 Personal history of transient ischemic attack (TIA), and cerebral infarction without residual deficits; Z79.4 Long term (current) use of insulin; Z79.84 Long term (current) use of oral hypoglycemic drugs; Z23 Encounter for immunization; W22.8XXA Striking against or struck by other objects, initial encounter; Y92.9 Unspecified place or not applicable
CPT/HCPCS: 73660; 90471; 90715; Z7502; 99283

== ENCOUNTER 2019-10-09 15:25 | Emergency (ER) | payer MEDICAID, OTHER ==
[~2019-10-09] VITALS: Ht 152.4 cm; Wt 83.9 kg
[~2019-10-09 15:25] MED LIST changes: +CEPHALEXIN500 MG ORAL
[2019-10-09 15:50] VITALS: BP 126/67
[2019-10-09] MEDS ORDERED: Meclizine 25mg tab ONE (15:55)
--- NOTE | 2019-10-09 16:02 | Emergency Room Report ---
History of Present Illness General Chief Complaint: Dizziness Source: Patient Present Illness HPI 64-year-old female history of hypertension history of diabetes presents with dizziness started 4 days ago and 5 days earlier had left ear pain, patient endorses dizziness with position, sudden movements, the room spins, alleviated by standing still, severity is severe, intermittent lasting a few minutes patient presents for evaluation no weakness no facial droop no chest pain or shortness of breath Allergies: Coded Allergies: No Known Allergies (Unverified , 02/08/12) COVID-19 Screening Contact w/high risk pt: No Recent Travel to affected area: No Experienced COVID-19 symptoms?: No COVID-19 Testing performed DESIGN AND SALES CONSULTANT: No Patient History Past Medical History: see triage record Last Menstrual Period: na Now: No Reviewed Nursing Documentation: PMH: Agreed; PSxH: Agreed Nursing Documentation-PMH Past Medical History: No History, Except For Hx Cardiac Problems: Yes Hx Hypertension: Yes Hx Pacemaker: Yes Hx Asthma: No Hx COPD: No Hx Diabetes: Yes Hx Cancer: No Hx Gastrointestinal Problems: No Hx Dialysis: No Hx Neurological Problems: No Hx Cerebrovascular Accident: Yes - 1975 - no deficits Hx Seizures: No Hx Neurologic Surgery: Yes - cranioplasty Review of Systems All Other Systems: negative except mentioned in HPI Physical Exam Vital Signs Date Time Temp Pulse Resp B/P (MAP) Pulse Ox O2 Delivery O2 Flow Rate FiO2 10/09/19 15:41 98.4 67 17 126/67 (86) 97 Room Air General Appearance: well appearing, no apparent distress Head: normocephalic, atraumatic ENT: hearing grossly normal, normal voice Neck: full range of motion, supple Respiratory: no respiratory distress, speaking full sentences Neurologic: alert, motor strength/tone normal, intelligence officer basic III-XII nml as tested, oriented x3, cerebellar normal, responsive, speech normal, normal gait, no pronator, no focal defects, other - Cranial nerves II through XII intact, no pronator drift, no Romberg, gait intact cerebellar signs normal [id number] Psychiatric: mood/affect normal Skin: no rash Medical Decision Making Diagnostic Impression: Primary Impression: Dizziness ER Course 64-year-old female presents most likely with BPPV, no evidence of stroke, patient given meclizine, Kaylie maneuver performed in the ED alleviated her symptoms return precautions were discussed follow-up with PCP. Differential also includes stroke, vestibulitis, Mnire's disease Last Vital Signs Date Time Temp Pulse Resp B/P (MAP) Pulse Ox O2 Delivery O2 Flow Rate FiO2 10/09/19 15:50 67 17 Room Air 10/09/19 15:50 98.4 126/67 97 Disposition: HOME, SELF-CARE Condition: Stable Scripts Meclizine Hcl* (MECLIZINE*) 25 Mg Tablet 25 MG ORAL THREE TIMES A DAY, #30 TAB Prov: Matty Stokes MD 10/09/19 Referrals: [facility] (PCP) [facility] Patient Instructions: Vertigo Additional Instructions: The patient was provided with discharge instructions, notified to follow-up with a primary care doctor and or specialist in the next 24-48 hours, and to return to the ED if they have worsening of their symptoms. Please note that this report is being documented using brotips technology. This can lead to erroneous entry secondary to incorrect interpretation by the dictating instrument. Matty Stokes MD October 09, 2019 16:02
[2019-10-09] MEDS ORDERED: MECLIZINE HCL25 MG ORAL (16:05)
[2019-10-09] MEDS ORDERED: Meclizine 25mg tab ORAL ONE (16:15)
[2019-10-09 16:18] VITALS: BP 130/68
== END 2019-10-09 16:18 | disposition home or self-care (01) ==
LOC: EMR 15:45
DX: R42 Dizziness and giddiness (principal); I10 Essential (primary) hypertension; E11.9 Type 2 diabetes mellitus without complications; Z86.73 Personal history of transient ischemic attack (TIA), and cerebral infarction without residual deficits
CPT/HCPCS: 99282